=== PATIENT | female | born 1945 | race Caucasian/White ===

== ENCOUNTER 2020-02-04 14:40 | Emergency (ER) | payer MEDICARE ==
[~2020-02-04] VITALS: Ht 167.6 cm; Wt 60.0 kg
--- NOTE | 2020-02-04 14:40 | NUR ---
COMBAT APPLICATION TORNIQUET APPLIED TO PATIENT BY KARMEN EMT TO LEFT UPPER ARM
--- NOTE | 2020-02-04 14:40 | NUR ---
Tourniquet off at 1440. PA sutured L wrist. Pt tolerated procedure well.
--- NOTE | 2020-02-04 14:54 | NUR ---
task RN note: pt dropped mug which shattered and cut left wrist, profuse bleeding from left wrist on arrival. accident occurred at approx 1425. BEATRIZ Ruano and BILL Pena at bedside on arrival. Tournequet applied on arrival. pt's left radial pulse auscultated by doppler by BEATRIZ Ruano. Nerve block completed by BILL Pena. Bleeding controlled at this time. BILL Pena suturing at this time. Son at bedside.
[2020-02-04 15:15] VITALS: BP 112/64
== END 2020-02-04 16:06 | disposition home or self-care (01) ==
LOC: ED 15:08
DX: S61.512A Laceration without foreign body of left wrist, initial encounter (principal); W25.XXXA Contact with sharp glass, initial encounter; Y93.89 Activity, other specified; Y92.89 Other specified places as the place of occurrence of the external cause; Y99.8 Other external cause status
CPT/HCPCS: 12032; 12042; 99284